=== PATIENT | female | born 1950 | race Caucasian/White ===

== ENCOUNTER 2021-05-16 11:36 | Day surgery (SDC) | payer MEDICARE ==
[2021-05-16] VITALS (14 sets, daily range): BP systolic 115–164; BP diastolic 52–85; PULSE 60–85; TEMP 97.5–97.9
[~2021-05-16] VITALS: Ht 149.9 cm; Wt 70.6 kg
[2021-05-16 12:58] LABS: HEMOGLOBIN 10.5 g/dl (12.5-16.0); MEAN CELL VOLUME 86 fl (80.0-100.0); MEAN CORPUSCULAR HEMOGLOBIN 27 pg (27.0-31.0); MEAN CORPUSCULAR HGB CONC 32 g/dl (33.0-37.0); MEAN PLATELET VOLUME 10.1 fl (7.4-10.4); PLATELET COUNT 350 K/mm3 (130-400); RED BLOOD COUNT 3.87 M/mm3 (4.10-5.30); REDCELL DISTRIBUTION WIDTH-CV 15.2 % (11.5-14.5)
[2021-05-16 12:59] LABS: HEMATOCRIT 33.3 % (37.0-47.0)
[2021-05-16 13:09] LABS: INR 1.1 (0.8-3.0); PROTHROMBIN TIME 11.8 SECONDS (9.7-12.8)
[2021-05-16 13:12] LABS: PARTIAL THROMBOPLASTIN TIME 27.3 SECONDS (26.0-37.0)
[2021-05-16 13:14] LABS: CALCIUM 10.5 mg/dL (8.4-10.2); CREATININE, serum 1.4 mg/dL (0.57-1.11); POTASSIUM 4.2 mmol/L (3.5-4.5)
--- NOTE | 2021-05-16 16:18 | NUR ---
SEE MERGE DOCUMENTATION FOR MEDICATION ADMINISTRATION TIMES AND INTRA/POST PROCEDURE SEDATION ASSESSMENTS.
[2021-05-16] MEDS ORDERED: PREDNISONE20 MG PO (16:35)
[2021-05-16] MEDS ORDERED: LASIX 40MG TABL40 MG PO (16:36)
[2021-05-16] MEDS ORDERED: ATROVENT I0.2 MG/1 M INH (16:39)
[2021-05-16] MEDS ORDERED: EZALLOR SPRINKL20 MG PO (16:40)
[2021-05-16] MEDS ORDERED: SYNTHROID0.125 MG/T PO (16:41)
[2021-05-16] MEDS ORDERED: NOVOLIN R100 U/ML (16:43)
[2021-05-16] MEDS ORDERED: FLONASE NASAL S16 GM (16:44)
[2021-05-16] MEDS ORDERED: CYMBALTA 60MG60 MG PO (16:45)
[2021-05-16] MEDS ORDERED: 00186-0370-20 IH (16:45)
[2021-05-16] MEDS ORDERED: ADALAT CC30 MG PO (16:47)
[2021-05-16] MEDS ORDERED: CARDIZEM120 MG PO (16:48)
[2021-05-16] MEDS ORDERED: XARELTO20 MG PO (16:48)
[2021-05-16] MEDS ORDERED: CORDARONE200 MG/TAB PO (16:49)
[2021-05-16] MEDS ORDERED: PULMICORT0.5 MG/2 M IH (16:50)
[2021-05-16] MEDS ORDERED: BASAGLAR K100 UNIT/1 SQ (16:51)
[2021-05-16] MEDS ORDERED: KLOR-CON20 MEQ PO (16:53)
[2021-05-16] MEDS ORDERED: K-TAB20 PO (16:55)
--- NOTE | 2021-05-16 17:18 | NUR ---
Femoral cath performed, manual pressure held for sheath removal. Pt with RLS and moving frequently. Order from Dr Mares for Femostop to be applied. Pt diastolic BP in 70's. Order for Femostop to be inflated to 80 mmHg and remain in place for 2 hours. Total flat time 4 hours. Orders read back and verified.
--- NOTE | 2021-05-16 17:25 | NUR ---
Pt being admitted overnight. No telemetry currently available. Pt had no intervention. Dr Mares contacted regarding whether telemetry necessary. Order recieved that pt does not need telemetry monitoring. Read back and verified.
--- NOTE | 2021-05-16 18:05 | NUR ---
PT IS ON BEDREST UNTIL 1914.
--- NOTE | 2021-05-16 18:06 | NUR ---
R RADIAL BAND LOOSENED BY 5CC
--- NOTE | 2021-05-16 21:36 | NUR ---
Patient assessed around 1999. Alert and oriented, and able to make needs known. Flat time over as of 1929. Day shift nurse had removed femstop. Gauze/tegarder to right femoral site CDI. No hematoma. Denies pain and discomfort. Voices no questions, needs, or concerns at this time. Ambulated to bathroom, gait steady. On oxygen at 2 L/min via [place], which patient reports is baseline for her. In bed with call light within reach. Encouraged to call if she needed anything, and voiced understanding.
[2021-05-17 00:30] VITALS: BP 118/54; PULSE 60; TEMP 97.5
[2021-05-17 04:00] VITALS: BP 150/63; PULSE 69; TEMP 97.8
[2021-05-17 04:21] VITALS: BP 150/63; PULSE 69; TEMP 97.8
--- NOTE | 2021-05-17 05:10 | NUR ---
Patient has denied having pain and discomfort this shift. Voices no questions, needs, or concerns at this time. In bed with call light within reach.
[2021-05-17 07:52] VITALS: BP 163/63; PULSE 70; TEMP 98.4
--- NOTE | 2021-05-17 09:25 | NUR ---
SALOMON met with the patient to discuss discharge plan. The patient lives alone in [place]. She reports independence with ADLs and has a walker and continuous home oxygen from [facility]. The patient's PCP is Dr. Phoenix Nolen and she receives her medications from [facility] in . She reports no difficulties obtaining her meds. The patient does not have a DPOA-HC, but she was interested in obtaining a form. SALOMON provided. The patient states that she is and has two children: Ankit ([place]) and Papa ([place], ph#[phone]). The patient plans to return home upon discharge. No additional needs at this time. *Discharge plan: home*
== END 2021-05-17 11:45 | disposition home or self-care (01) ==
LOC: COL.CAR 11:36 → MEDICAL 17:55 → COL.CAR 05-17 11:45
PROVIDERS: Internal Medicine Cardiovascular Disease
DX: I25.10 Atherosclerotic heart disease of native coronary artery without angina pectoris (principal); I48.91 Unspecified atrial fibrillation; I11.0 Hypertensive heart disease with heart failure; I50.30 Unspecified diastolic (congestive) heart failure; I27.20 Pulmonary hypertension, unspecified; J44.9 Chronic obstructive pulmonary disease, unspecified; G47.33 Obstructive sleep apnea (adult) (pediatric); E78.5 Hyperlipidemia, unspecified; Z79.84 Long term (current) use of oral hypoglycemic drugs; Z79.4 Long term (current) use of insulin; Z79.890 Hormone replacement therapy; Z79.899 Other long term (current) drug therapy
CPT/HCPCS: OP; C1769; C1894; J1200; J1644; J2250; J3010; J7030; J7512; Q9967